=== PATIENT | male | born 1985 | race Hispanic/Latino ===

== ENCOUNTER 2022-11-02 10:51 | Emergency (ER) | payer OTHER ==
[~2022-11-02] VITALS: Ht 167.6 cm; Wt 74.4 kg
[~2022-11-02 10:51] MED LIST: CEPH500B PO; HYDR-4060 PO; IBUP-2071 PO
[2022-11-02 15:21] VITALS: BP 128/88
== END 2022-11-02 15:24 | disposition home or self-care (01) ==
LOC: EDH 10:51
DX: S91.112D Laceration without foreign body of left great toe without damage to nail, subsequent encounter (principal); Z48.02 Encounter for removal of sutures; X58.XXXD Exposure to other specified factors, subsequent encounter
CPT/HCPCS: 99281